=== PATIENT | female | born 1940 | race Caucasian/White ===

== ENCOUNTER 2017-05-16 09:52 | Outpatient (CLI) | payer OTHER, MEDICAID ==
[~2017-05-16 09:52] MED LIST: AMLO1CAP6 PO; ASA PO; GLIM2TAB2 PO; POTA8TAB4 PO
== END 2017-05-16 16:50 | disposition home or self-care (01) ==
LOC: SMA 09:52
DX: Z12.31 Encounter for screening mammogram for malignant neoplasm of breast (principal)
CPT/HCPCS: G0202

== ENCOUNTER 2018-11-29 19:02 | Emergency (ER) | payer OTHER, MEDICAID ==
[~2018-11-29] VITALS: Ht 152.4 cm; Wt 81.6 kg
[2018-11-29 19:02] VITALS: BP_SYST 186
--- NOTE | 2018-11-29 19:02 | NUR ---
Pt placed to ER bed 03, to gown. Report given to RAMAN Connor.
--- NOTE | 2018-11-29 19:38 | NUR ---
Dr. Rosado at bedside.
[2018-11-29] MEDS ORDERED: BACITRACIN 1 GM OINT TP ONE (19:45)
--- NOTE | 2018-11-29 19:45 | NUR ---
Pt BIB family to ED C/O head injury status post fall on for 3 days. Per family at bedside, Pt reportedly fell 3 days ago, but did not inform anyone. Family noticed a bump on the back of Pt's head with dried blood. Claims Pt has been acting normal. No modifying factors otherwise. Pt states Hx of hypertension, diabetes, hernia repair, hysterectomy, and cholecystectomy. No other injuries and or complaints noted. VSS, no s/s of acute distress. Resting on gurney with rails up
--- NOTE | 2018-11-29 20:25 | NUR ---
Pt taken to Radiology, in stable condition
--- NOTE | 2018-11-29 20:32 | NUR ---
Pt back from Radiology well tolerated
--- NOTE | 2018-11-29 21:20 | NUR ---
Dr. Rosado bedside for Pt update
[2018-11-29 21:30] VITALS: BP_SYST 168
--- NOTE | 2018-11-29 21:30 | NUR ---
Patient given written and verbal discharge instructions and verbalizes understanding. ER MD discussed with patient the results and treatment provided. Patient in stable condition. ID arm band removed. Patient educated on pain management and to follow up with PMD. Pain Scale 0/10 Opportunity for questions provided and answered.
== END 2018-11-29 21:30 | disposition home or self-care (01) ==
LOC: SED 19:02
DX: S01.01XA Laceration without foreign body of scalp, initial encounter (principal); S80.212A Abrasion, left knee, initial encounter; I10 Essential (primary) hypertension; E11.9 Type 2 diabetes mellitus without complications; J44.9 Chronic obstructive pulmonary disease, unspecified; W18.39XA Other fall on same level, initial encounter; Y93.89 Activity, other specified; Y92.89 Other specified places as the place of occurrence of the external cause; Y99.8 Other external cause status
CPT/HCPCS: 70450-TC; 82962; 93005; 99284

== ENCOUNTER 2018-12-10 08:30 | Outpatient (CLI) | payer OTHER, MEDICAID | END 2018-12-10 21:12 | disposition home or self-care (01) | LOC: SMA 08:30 | DX: Z12.31 Encounter for screening mammogram for malignant neoplasm of breast (principal) | CPT/HCPCS: 77067 ==

== ENCOUNTER 2019-06-25 08:25 | Outpatient (CLI) | payer OTHER, MEDICAID | END 2019-06-25 21:30 | disposition home or self-care (01) | LOC: SUS 08:25 | DX: R32 Unspecified urinary incontinence (principal); N81.10 Cystocele, unspecified | CPT/HCPCS: 76770 ==

== ENCOUNTER 2020-03-14 08:10 | Outpatient (CLI) | payer OTHER, MEDICAID ==
[~2020-03-14 08:10] MED LIST changes: +GLIM2TAB PO; -GLIM2TAB2 PO
== END 2020-03-14 21:10 | disposition home or self-care (01) ==
LOC: SUS 08:10
DX: N20.0 Calculus of kidney (principal); R16.0 Hepatomegaly, not elsewhere classified
CPT/HCPCS: 76700-TC

== ENCOUNTER 2020-05-09 10:22 | Outpatient (CLI) | payer OTHER, MEDICAID | END 2020-05-09 20:27 | disposition home or self-care (01) | LOC: SMA 10:22 | DX: Z12.31 Encounter for screening mammogram for malignant neoplasm of breast (principal); N64.89 Other specified disorders of breast | CPT/HCPCS: 77067 ==

== ENCOUNTER 2021-12-25 02:26 | Emergency (ER) | payer OTHER, MEDICAID ==
[~2021-12-25 02:26] MED LIST changes: +BIMA2.5D5 OP; +FESO8TAB PO; +HYDR25TA4 PO; +LIP40 PO; +LOSA100T3 PO; +METF500S7 PO; +OMEP20TA20 PO; -POTA8TAB4 PO; +SYN50 PO; +TIMO5DRO15 EACH EYE
--- NOTE | 2021-12-25 02:26 | NUR ---
PATIENT BROUGHT TO BED 2 AT 0225 AFTER BEING FOUND DOWN BY ER STAFF IN THE CAR AFTER BEING BROUGHT IN BY FAMILY IN [place]. 5 MINUTES OF CHEST COMPRESSIONS IN CAR STARTED BY THIS [employer] OPERATOR, PRIOR TO ARRIVAL IN ROOM. PER FAMILY, PATIENT HAD PASSED OUT 10 MINUTES PRIOR TO ARRIVAL AFTER WAKING UP FAMILY MEMBERS WITH UNKNOWN COMPLAINT. UNKNOWN MEDICAL HISTORY, ALLERGIES OR MEDICATIONS. PATIENT PLACED ON MONITOR, RT, MD, RN'S AT BEDSIDE PREPARING INTRAVENOUS ACCESS AND SETTING UP FOR INTUBATION.
--- NOTE | 2021-12-25 02:27 | NUR ---
PLEASE SEE PAPER CHARTING AT THIS TIME FOR CODE DOCUMENTATION.
[2021-12-25] MEDS ORDERED: NALOXONE HCL 2 MG/2 ML SYR (NARCAN) IVP ONE (03:00)
[2021-12-25] MEDS ORDERED: PIPERACILLIN/TAZO 3.375 GM in NS 50 ML IV ONE (03:00)
[2021-12-25] MEDS ORDERED: CALCIUM CHLORIDE 1 GM/10 ML DISP.SYRIN (14 mEq Ca++/SYR) IVP ONE (03:00)
[2021-12-25] MEDS ORDERED: NOREPINEPHRINE BITARTRATE 4 MG in NS 246 ML IV ONE (03:00)
[2021-12-25] MEDS ORDERED: SODIUM BICARBONATE 8.4% JECT 50 MEQ/50 ML SYRINGE IVP ONE ×2 (03:00)
[2021-12-25] MEDS ORDERED: DEXTROSE 50% JECT 50 ML DISP.SYRIN IVP ONE (03:00)
[2021-12-25] MEDS ORDERED: NACL 0.9% 1,000 ML IV ONE ×2 (03:00)
--- NOTE | 2021-12-25 03:04 | NUR ---
PER DR FLOYD STOPPED ALL MEDICAL INTERVENTION PER FAMILY AT THIS TIME.
--- NOTE | 2021-12-25 03:08 | NUR ---
PULSE 36, 45% O2 SAT.
--- NOTE | 2021-12-25 03:11 | NUR ---
26 PULSE, O2 SAT 33%
--- NOTE | 2021-12-25 03:29 | NUR ---
TIME OF CALLED PER DR FLOYD
--- NOTE | 2021-12-25 04:00 | NUR ---
[employer] CALLED. PER [employer], PATIENT IS CLEARED. [employer] [facility] REFERRAL ID IS [id number]
--- NOTE | 2021-12-25 04:30 | NUR ---
PATIENT CLEANED UP AND ALL TUBES TAKEN OUT OF PATIENT, FOR FAMILY TO HAVE TIME TO VISIT
--- NOTE | 2021-12-25 05:00 | NUR ---
FAMILY VISITING PATIENT AT BEDSIDE PRIOR TO BAGGING PATIENT
--- NOTE | 2021-12-25 07:00 | NUR ---
PATIENT BAGGED AND TAGGED, TAKEN TO [place] BY SECURITY. ALL BELONGINGS TAKEN WITH FAMILY. PMD CALLED FOR CERTIFICATE.
== END 2021-12-25 07:00 ==
LOC: SED 02:26
DX: I46.9 Cardiac arrest, cause unspecified (principal); Z79.899 Other long term (current) drug therapy
CPT/HCPCS: 92950; 99291